=== PATIENT | male | born 1955 | race Caucasian/White ===

== ENCOUNTER 2018-12-31 15:15 | Emergency (ER) | payer MEDICARE, OTHER ==
[~2018-12-31] VITALS: Ht 180.3 cm; Wt 135.0 kg
--- NOTE | 2018-12-31 15:20 | NUR ---
Dr. Miranda at bedside to evaluate pt.
[2018-12-31 15:51] LABS: BASOPHILS # (AUTO) 0.04 x10^3/uL (0-0.1); BASOPHILS % (AUTO) 1 % (0-1); EOSINOPHILS # (AUTO) 0.17 x10^3/uL (0-0.4); EOSINOPHILS % (AUTO) 2 % (1-7); LYMPHOCYTES # (AUTO) 2.56 x10^3/uL (1-3.4); LYMPHOCYTES % (AUTO) 29 % (22-44); MD NO; MEAN CORPUSCULAR HEMOGLOBIN 27.4 pg (27.5-34.5); MEAN CORPUSCULAR HGB CONC 31.5 g/dL (33.2-36.2); MEAN CORPUSCULAR VOLUME 87.2 fL (81-97); MONOCYTES # (AUTO) 0.63 x10^3/uL (0.2-0.8); MONOCYTES % (AUTO) 7 % (2-9); NEUTROPHILS % (AUTO) 62 % (42-75); PLATELET COUNT 304 x10^3/uL (130-400); RED BLOOD COUNT 3.17 x10^6/uL (4.38-5.82); RED CELL DISTRIBUTION WIDTH 18.9 % (9.4-14.8)
[2018-12-31 15:57] LABS: ALBUMIN 1.7 g/dL (3.4-5.0); ANION GAP 6 mmol/L (5-15); CALCIUM 7.9 mg/dL (8.5-10.1); CHLORIDE 110 mmol/L (98-107); CREATININE 1.09 mg/dL (0.7-1.3)
--- NOTE | 2018-12-31 16:29 | NUR ---
Pt ostomy bag removed and Dr. Miranda at bedside to evaluate the stoma more closely. New bag placed.
--- NOTE | 2018-12-31 17:24 | NUR ---
[facility] TO TRANSPORT PT BACK TO [facility] ~1800, PER CELESTINA (DISPATCH), PCS FAXED.
--- NOTE | 2018-12-31 18:01 | NUR ---
Telephone report called to RNJulee, at [facility]. [facility] to transport back to [facility].
[2018-12-31 18:28] VITALS: BP 104/67
== END 2018-12-31 18:30 | disposition home or self-care (01) ==
LOC: ED 18:04
DX: T85.9XXA Unspecified complication of internal prosthetic device, implant and graft, initial encounter (principal); Y83.8 Other surgical procedures as the cause of abnormal reaction of the patient, or of later complication, without mention of misadventure at the time of the procedure; Y92.89 Other specified places as the place of occurrence of the external cause
CPT/HCPCS: 36415; 80048; 82040; 85025; 99283

== ENCOUNTER → 2019-01-06 | Outpatient (CLI) | payer MEDICARE | END | disposition home or self-care (01) | LOC: RAD 13:22 | PROVIDERS: ATTEND Internal Medicine Geriatric Medicine | DX: Z45.2 Encounter for adjustment and management of vascular access device (principal); A41.9 Sepsis, unspecified organism | CPT/HCPCS: 36573; C1751 ==

== ENCOUNTER 2021-01-20 07:00 | Emergency (ER) | payer MEDICARE, MEDICAID ==
[~2021-01-20] VITALS: Ht 180.3 cm; Wt 150.0 kg
[2021-01-20 07:09] VITALS: BP 141/58
[2021-01-20] MEDS ORDERED: INSU100V13 SQ-INSULIN (08:27)
[2021-01-20] MEDS ORDERED: CHOL10003 PO (08:31)
[2021-01-20] MEDS ORDERED: FURO-92 PO (08:31)
[2021-01-20] MEDS ORDERED: GABA600T7 PO (08:31)
[2021-01-20] MEDS ORDERED: HYDR-2214 PO (08:31)
[2021-01-20] MEDS ORDERED: FAMO-79 PO (08:31)
[2021-01-20] MEDS ORDERED: OXYB15TA18 PO (08:31)
[2021-01-20] MEDS ORDERED: SEVE800T7 PO (08:31)
[2021-01-20] MEDS ORDERED: FERR325T18 PO (08:31)
== END 2021-01-20 07:42 | disposition other institution (70) ==
LOC: ED 07:36
DX: Z53.21 Procedure and treatment not carried out due to patient leaving prior to being seen by health care provider (principal)

== ENCOUNTER 2021-01-20 07:22 | Observation (INO) | payer MEDICARE, MEDICAID ==
[~2021-01-20] VITALS: Ht 180.3 cm; Wt 154.2 kg
[~2021-01-20 07:22] MED LIST: BUPIVACAINE/PF 0.5% ONE; EPINEPHRINE 1 MG/ML, 1ML ONE; HEPARIN 1,000 UNITS/ML, 10ML ONE; PAPAVERINE 30 MG/ML, 2ML ONE; PROTAMINE SULFATE 10 MG/ML, 25ML ONE; THROMBIN 20,000 UNIT VIAL TP ONE
[2021-01-20] MEDS ORDERED: SODIUM CHLORIDE 0.9% 1,000 ML IV SCH (08:00)
[2021-01-20] MEDS ORDERED: CHLORHEXIDINE 15 ML UDC PO ONE (08:00)
[2021-01-20] MEDS ORDERED: PLEASE ENTER HEIGHT AND WEIGHT MC SCH (08:00)
[2021-01-20] MEDS ORDERED: INSU100V13 SQ-INSULIN (08:27)
[2021-01-20] MEDS ORDERED: FERR325T18 PO (08:31)
[2021-01-20] MEDS ORDERED: SEVE800T7 PO (08:31)
[2021-01-20] MEDS ORDERED: FURO-92 PO (08:31)
[2021-01-20] MEDS ORDERED: GABA600T7 PO (08:31)
[2021-01-20] MEDS ORDERED: CHOL10003 PO (08:31)
[2021-01-20] MEDS ORDERED: OXYB15TA18 PO (08:31)
[2021-01-20] MEDS ORDERED: FAMO-79 PO (08:31)
[2021-01-20] MEDS ORDERED: HYDR-2214 PO (08:31)
[2021-01-20 08:37] VITALS: BP 117/71
[2021-01-20 08:38] LABS: BASOPHILS % (AUTO) 1 % (0-1); EOSINOPHILS % (AUTO) 7 % (1-7); LYMPHOCYTES % (AUTO) 38 % (22-44); MEAN CORPUSCULAR HEMOGLOBIN 28.5 pg (27.5-34.5); MEAN CORPUSCULAR HGB CONC 31.7 g/dL (33.2-36.2); MEAN PLATELET VOLUME 7.4 fL (7.4-10.4); MONOCYTES % (AUTO) 9 % (2-9); NEUTROPHILS % (AUTO) 45 % (42-75); PLATELET COUNT 227 x10^3/uL (130-400); RED BLOOD COUNT 3.46 x10^6/uL (4.38-5.82); RED CELL DISTRIBUTION WIDTH 15.9 % (9.4-14.8)
[2021-01-20 08:39] LABS: MD NO
[2021-01-20 08:48] LABS: ALANINE AMINOTRANSFERASE 9 U/L (12-78); ALBUMIN 2.9 g/dL (3.4-5.0); ANION GAP 8 mmol/L (5-15); CALCIUM 8.7 mg/dL (8.5-10.1); CHLORIDE 102 mmol/L (98-107)
[2021-01-20 08:50] LABS: ALKALINE PHOSPHATASE 77 U/L (45-117); BILIRUBIN,TOTAL 0.2 mg/dL (0.2-1.0); TOTAL PROTEIN 8.3 g/dL (6.4-8.2)
[2021-01-20] MEDS ORDERED: CHLORHEXIDINE 15 ML UDC ONE (08:51)
[2021-01-20] MEDS ORDERED: MIDAZOLAM 1 MG/ML, 2ML ONE ×2 (09:18→11:56)
[2021-01-20] MEDS ORDERED: FENTANYL PF 100 MCG/2ML ONE ×2 (09:18→11:56)
[2021-01-20] MEDS ORDERED: HEPARIN 1,000 UNITS/ML, 10ML IV ONE ×2 (09:57→10:15)
[2021-01-20] MEDS ORDERED: BUPIVACAINE/PF-EPI 0.5% 1:200K INFIL ONE (09:57)
[2021-01-20] MEDS ORDERED: CEFAZOLIN 1,000 MG ONE ×2 (10:53→11:56)
[2021-01-20] MEDS ORDERED: PHENYLEPHRINE 10 MG/ML ONE (10:53)
[2021-01-20] MEDS ORDERED: ROCURONIUM 10MG/ML,5ML ONE (10:53)
[2021-01-20] MEDS ORDERED: ONDANSETRON 2MG/ML, 2ML ONE ×2 (10:53→11:56)
[2021-01-20] MEDS ORDERED: NEOSTIGMINE 1 MG/ML, 10ML ONE (11:00)
[2021-01-20] MEDS ORDERED: GLYCOPYRROLATE 0.2MG/1ML, 5ML ONE (11:00)
[2021-01-20] MEDS ORDERED: PROPOFOL 10 MG/ML, 20ML ONE (11:56)
[2021-01-20] MEDS ORDERED: FENTANYL PF 100 MCG/2ML IV PRN (12:00)
[2021-01-20] MEDS ORDERED: ONDANSETRON 2MG/ML, 2ML IVPush PRN (12:00)
[2021-01-20] MEDS ORDERED: LABETALOL 5MG/ML, 20ML IV PRN (12:00)
[2021-01-20] MEDS ORDERED: PROMETHAZINE 25 MG/ML, 1ML IVPush PRN (12:00)
[2021-01-20] MEDS ORDERED: PROMETHAZINE 25 MG SUPP PR PRN (12:00)
[2021-01-20] MEDS ORDERED: OXYcodone 5 MG/5 ML ORAL.SOL UDC PO PRN (12:00)
[2021-01-20] MEDS ORDERED: ACETAMINOPHEN 325 MG TABLET PO PRN (12:00)
[2021-01-20] MEDS ORDERED: HYDROcodone/APAP 5/325 TABLET PO PRN (12:00)
[2021-01-20] MEDS ORDERED: HYDROmorphone 1 MG/ML, 1ML INJ IVPush PRN (12:00)
[2021-01-20] MEDS ORDERED: hydrALAzine 20 MG/ML, 1ML IV PRN (12:00)
[2021-01-20] MEDS ORDERED: METHOCARBAMOL 1,000 MG in DEXTROSE 5% 100 ML IV PRN (12:00)
== END 2021-01-20 14:53 ==
LOC: OUT 07:22 → ORIP 11:48 → UNDOADMOB 14:57 → ORIP 14:57
PROVIDERS: ADMIT Surgery; ATTEND Surgery
DX: I12.0 Hypertensive chronic kidney disease with stage 5 chronic kidney disease or end stage renal disease (principal); E11.22 Type 2 diabetes mellitus with diabetic chronic kidney disease; N18.6 End stage renal disease; Z20.822 Contact with and (suspected) exposure to COVID-19; E11.42 Type 2 diabetes mellitus with diabetic polyneuropathy; M54.9 Dorsalgia, unspecified; E66.01 Morbid (severe) obesity due to excess calories; Z99.2 Dependence on renal dialysis; Z79.4 Long term (current) use of insulin; Z79.899 Other long term (current) drug therapy; Z99.3 Dependence on wheelchair; Z93.3 Colostomy status
CPT/HCPCS: 36415; 36558; 36589; 36821; 71045; 77001; 80053; 85025; 85730; 87635; 93005; C1751; G0378; J0171; J0690; J1644; J2250; J2370; J2405; J2704; J2710; J3010; J7030; S0020; J2720; J2440

== ENCOUNTER 2021-03-02 10:13 | Emergency (ER) | payer MEDICARE, MEDICAID ==
[~2021-03-02] VITALS: Ht 180.3 cm; Wt 145.0 kg
[~2021-03-02 10:13] MED LIST changes: -BUPIVACAINE/PF 0.5% ONE; +CHOL10003 PO; -EPINEPHRINE 1 MG/ML, 1ML ONE; +FAMO-79 PO; +FERR325T18 PO; +FURO-92 PO; +GABA600T7 PO; -HEPARIN 1,000 UNITS/ML, 10ML ONE; +HYDR-2214 PO; +INSU100V13 SQ-INSULIN; +OXYB15TA18 PO; -PAPAVERINE 30 MG/ML, 2ML ONE; -PROTAMINE SULFATE 10 MG/ML, 25ML ONE; +SEVE800T7 PO; -THROMBIN 20,000 UNIT VIAL TP ONE
[2021-03-02 10:48] LABS: BASOPHILS % (AUTO) 1 % (0-1); EOSINOPHILS % (AUTO) 3 % (1-7); LYMPHOCYTES % (AUTO) 26 % (22-44); MEAN CORPUSCULAR HEMOGLOBIN 29.8 pg (27.5-34.5); MEAN CORPUSCULAR HGB CONC 32.2 g/dL (33.2-36.2); MEAN PLATELET VOLUME 7.8 fL (7.4-10.4); MONOCYTES % (AUTO) 7 % (2-9); NEUTROPHILS % (AUTO) 64 % (42-75); PLATELET COUNT 155 x10^3/uL (130-400); RED BLOOD COUNT 4.29 x10^6/uL (4.38-5.82); RED CELL DISTRIBUTION WIDTH 18.1 % (9.4-14.8)
[2021-03-02 10:59] LABS: ALBUMIN 3.5 g/dL (3.4-5.0); ANION GAP 9 mmol/L (5-15); CALCIUM 9.2 mg/dL (8.5-10.1); CHLORIDE 104 mmol/L (98-107); CREATININE 2.73 mg/dL (0.7-1.3)
--- NOTE | 2021-03-02 13:20 | NUR ---
BEDSIDE REPORT FROM GLORIA RADFORD FOR TRANSFER OF PATIENT CARE. PROVIDED WARMER TO PATIENT, NADN, CONNECTED TO MONITOR, VSS, CALL LIGHT WITHIN REACH.
--- NOTE | 2021-03-02 14:59 | NUR ---
PATIENT RESTING IN [facility], CONNECTED TO MONITOR, VSS, SIDE RAILS UP X2, CALL LIGHT WITHIN REACH. WAITING FOR IR.
--- NOTE | 2021-03-02 15:07 | NUR ---
PATIENT TO IR.
[2021-03-02] MEDS ORDERED: LIDOCAINE 1%, 10ML ONE (15:21)
[2021-03-02] MEDS ORDERED: MIDAZOLAM 1 MG/ML, 5ML ONE ×2 (15:24)
[2021-03-02] MEDS ORDERED: FENTANYL PF 100 MCG/2ML ONE (15:24)
[2021-03-02] MEDS ORDERED: FLUMAZENIL 0.1 MG/1 ML, 5ML ONE (15:24)
[2021-03-02] MEDS ORDERED: NALOXONE 1 MG/ML, 2ML ONE (15:24)
--- NOTE | 2021-03-02 15:57 | NUR ---
REPORT FROM IR, PATIENT'S PERMACATH CHANGED TO 27 CC, 2 VERSED, 50 FENTANYL, AND 300 mL NS. 22 GAUGE IV STARTED LEFT FA.
--- NOTE | 2021-03-02 16:41 | NUR ---
PATIENT REQUIRES A [facility] TRANSPORT BACK TO [facility].
--- NOTE | 2021-03-02 17:11 | NUR ---
REPORT CALLED TO GLORIA NOGUERA AT [facility] FOR TRANSFER OF PATIENT CARE.
--- NOTE | 2021-03-02 17:56 | NUR ---
PATIENT SITTING IN [place] WATCHING TV, NADN, CONNECTED TO MONITOR, VSS, SIDE RAILS UP X2, CALL LIGHT WITHIN REACH. [facility].
--- NOTE | 2021-03-02 18:54 | NUR ---
REPORT RECEIVED FROM GLORIA RAYMUNDO
--- NOTE | 2021-03-02 19:10 | NUR ---
RESTING ON GURENY, PT WANTING SOMETHING TO EAT, GIVEN SANDWICH AND CHIPS, DENIES NEEDS AT THIS TIME.
--- NOTE | 2021-03-02 19:18 | NUR ---
pt given sandwich and chips. [facility]
--- NOTE | 2021-03-02 20:30 | NUR ---
pt need head of bed adjusted. pt resting on gureny
--- NOTE | 2021-03-02 21:00 | NUR ---
pt need head of bed adjusted. pt resting on gureny
--- NOTE | 2021-03-02 21:58 | NUR ---
pt need head of bed moved. updated pt that [facility] will still be coming tonight
[2021-03-02 22:25] VITALS: BP 122/65
--- NOTE | 2021-03-02 22:35 | NUR ---
PT DISCHARGED WITH [facility]. ALL BELONGINGS SENT WITH PT.
== END 2021-03-02 22:38 | disposition home or self-care (01) ==
LOC: ED 12:53
DX: T82.42XA Displacement of vascular dialysis catheter, initial encounter (principal); I12.0 Hypertensive chronic kidney disease with stage 5 chronic kidney disease or end stage renal disease; N18.6 End stage renal disease; E11.22 Type 2 diabetes mellitus with diabetic chronic kidney disease; Z99.2 Dependence on renal dialysis
CPT/HCPCS: 36415; 36581; 71045; 75984; 80048; 82040; 83735; 84100; 85025; 93005; 99156; 99157; 99285; C1750; C1769; J1642; J2250; J3010; J3490; J2310

== ENCOUNTER 2021-04-10 08:00 | Day surgery (SDC) | payer MEDICARE, MEDICAID ==
[~2021-04-10] VITALS: Ht 180.3 cm; Wt 149.0 kg
[2021-04-10 08:49] VITALS: BP 122/78
[2021-04-10 09:23] LABS: BASOPHILS % (AUTO) 1 % (0-1); EOSINOPHILS % (AUTO) 7 % (1-7); LYMPHOCYTES % (AUTO) 36 % (22-44); MEAN CORPUSCULAR HEMOGLOBIN 29.9 pg (27.5-34.5); MEAN CORPUSCULAR HGB CONC 32.4 g/dL (33.2-36.2); MEAN PLATELET VOLUME 8.5 fL (7.4-10.4); MONOCYTES % (AUTO) 9 % (2-9); NEUTROPHILS % (AUTO) 47 % (42-75); PLATELET COUNT 129 x10^3/uL (130-400); RED BLOOD COUNT 4.38 x10^6/uL (4.38-5.82)
[2021-04-10 09:32] LABS: INTERNATIONAL NORMALIZED RATIO 1.02 (0.93-1.1); PROTHROMBIN TIME 10.9 Seconds (9.6-11.5)
[2021-04-10 09:34] LABS: ALANINE AMINOTRANSFERASE 46 U/L (12-78); ALBUMIN 3.2 g/dL (3.4-5.0); CALCIUM 8.8 mg/dL (8.5-10.1); CREATININE 3.07 mg/dL (0.7-1.3)
[2021-04-10 09:36] LABS: ALKALINE PHOSPHATASE 109 U/L (45-117); BILIRUBIN,TOTAL 0.3 mg/dL (0.2-1.0); TOTAL PROTEIN 7.8 g/dL (6.4-8.2)
[2021-04-10 10:05] LABS: ANION GAP 3 mmol/L (5-15); CHLORIDE 104 mmol/L (98-107)
[2021-04-10] MEDS ORDERED: HEPARIN 1,000 UNITS/ML, 10ML ONE ×2 (10:21→11:02)
[2021-04-10] MEDS ORDERED: NALOXONE 1 MG/ML, 2ML ONE (10:21)
[2021-04-10] MEDS ORDERED: MIDAZOLAM 1 MG/ML, 5ML ONE (10:21)
[2021-04-10] MEDS ORDERED: FENTANYL PF 100 MCG/2ML ONE (10:21)
[2021-04-10] MEDS ORDERED: FLUMAZENIL 0.1 MG/1 ML, 5ML ONE (10:21)
[2021-04-10] MEDS ORDERED: PROTAMINE SULFATE 10 MG/ML, 25ML ONE (10:21)
[2021-04-10] MEDS ORDERED: LIDOCAINE-MPF 2% ,5ML ONE (10:33)
[2021-04-10] MEDS ORDERED: PROTAMINE SULFATE 10 MG/ML, 5ML ONE (11:02)
[2021-04-10] MEDS ORDERED: THROMBIN 20,000 UNIT VIAL TP ONE (11:03)
[2021-04-10] MEDS ORDERED: LIDOCAINE 2%, 20ML ONE (11:09)
== END 2021-04-10 17:10 ==
LOC: OUT 08:00
PROVIDERS: ATTEND Surgery
DX: T82.590A Other mechanical complication of surgically created arteriovenous fistula, initial encounter (principal); E11.42 Type 2 diabetes mellitus with diabetic polyneuropathy; E11.22 Type 2 diabetes mellitus with diabetic chronic kidney disease; N18.6 End stage renal disease; E66.9 Obesity, unspecified; Z68.42 Body mass index [BMI] 45.0-49.9, adult; Z79.4 Long term (current) use of insulin; Z79.899 Other long term (current) drug therapy; Z79.891 Long term (current) use of opiate analgesic; Z93.3 Colostomy status; Z99.2 Dependence on renal dialysis; Z99.3 Dependence on wheelchair; Z98.890 Other specified postprocedural states; Z80.3 Family history of malignant neoplasm of breast; Y84.8 Other medical procedures as the cause of abnormal reaction of the patient, or of later complication, without mention of misadventure at the time of the procedure; Y92.89 Other specified places as the place of occurrence of the external cause
CPT/HCPCS: 36415; 36902; 37607; 80053; 85025; 85610; 99156; 99157; C1725; C1769; C1894; J2250; J3010; J1644; J2720; J2310

== ENCOUNTER 2021-05-17 10:24 | Day surgery (SDC) | payer MEDICARE, MEDICAID ==
[~2021-05-17] VITALS: Ht 177.8 cm; Wt 150.0 kg
[2021-05-17] MEDS ORDERED: FENTANYL PF 100 MCG/2ML ONE (10:44)
[2021-05-17] MEDS ORDERED: PROTAMINE SULFATE 10 MG/ML, 25ML ONE (10:45)
[2021-05-17] MEDS ORDERED: MIDAZOLAM 1 MG/ML, 5ML ONE (10:45)
[2021-05-17] MEDS ORDERED: PAPAVERINE 30 MG/ML, 2ML ONE (10:45)
[2021-05-17] MEDS ORDERED: NALOXONE 1 MG/ML, 2ML ONE (10:45)
[2021-05-17] MEDS ORDERED: HEPARIN 1,000 UNITS/ML, 10ML ONE (10:45)
[2021-05-17] MEDS ORDERED: FLUMAZENIL 0.1 MG/1 ML, 5ML ONE (10:45)
[2021-05-17 10:56] VITALS: BP 111/69
[2021-05-17 10:59] LABS: ALANINE AMINOTRANSFERASE 17 U/L (12-78); ALBUMIN 2.9 g/dL (3.4-5.0); ANION GAP 5 mmol/L (5-15); CALCIUM 8.8 mg/dL (8.5-10.1); CHLORIDE 104 mmol/L (98-107); CREATININE 2.74 mg/dL (0.7-1.3)
[2021-05-17] MEDS ORDERED: SODIUM CHLORIDE 0.9% 1,000 ML IV SCH (11:00)
[2021-05-17 11:01] LABS: ALKALINE PHOSPHATASE 103 U/L (45-117); BILIRUBIN,TOTAL 0.4 mg/dL (0.2-1.0); TOTAL PROTEIN 7.8 g/dL (6.4-8.2)
[2021-05-17] MEDS ORDERED: LIDOCAINE 1%, 10ML ONE (11:02)
[2021-05-17 11:03] LABS: BASOPHILS % (AUTO) 1 % (0-1); EOSINOPHILS % (AUTO) 5 % (1-7); LYMPHOCYTES % (AUTO) 29 % (22-44); MEAN CORPUSCULAR HEMOGLOBIN 30.4 pg (27.5-34.5); MEAN CORPUSCULAR HGB CONC 32.8 g/dL (33.2-36.2); MEAN PLATELET VOLUME 8.6 fL (7.4-10.4); MONOCYTES % (AUTO) 6 % (2-9); NEUTROPHILS % (AUTO) 60 % (42-75); PLATELET COUNT 130 x10^3/uL (130-400); RED BLOOD COUNT 4.48 x10^6/uL (4.38-5.82); RED CELL DISTRIBUTION WIDTH 15.8 % (9.4-14.8)
[2021-05-17 11:07] LABS: INTERNATIONAL NORMALIZED RATIO 1.04 (0.93-1.1); PROTHROMBIN TIME 11.1 Seconds (9.6-11.5)
[2021-05-17] MEDS ORDERED: VISIPAQUE 270 MG/ML, 50ML BOTTLE ONE (13:29)
== END 2021-05-17 15:15 | disposition home or self-care (01) ==
LOC: OUT 10:24
PROVIDERS: ATTEND Surgery
DX: T82.590A Other mechanical complication of surgically created arteriovenous fistula, initial encounter (principal); E11.42 Type 2 diabetes mellitus with diabetic polyneuropathy; E11.22 Type 2 diabetes mellitus with diabetic chronic kidney disease; N18.6 End stage renal disease; E66.01 Morbid (severe) obesity due to excess calories; Z68.42 Body mass index [BMI] 45.0-49.9, adult; Z79.01 Long term (current) use of anticoagulants; Z79.4 Long term (current) use of insulin; Z79.891 Long term (current) use of opiate analgesic; Z79.899 Other long term (current) drug therapy; Z93.3 Colostomy status; Z99.3 Dependence on wheelchair; Z80.3 Family history of malignant neoplasm of breast; Y83.8 Other surgical procedures as the cause of abnormal reaction of the patient, or of later complication, without mention of misadventure at the time of the procedure
CPT/HCPCS: 36902; 80053; 82962; 85025; 85610; 85730; C1725; C1751; C1769; C1894; J2250; J3010; J7030; Q9966; J1644; J2720; J2310; J2440

== ENCOUNTER 2021-06-14 05:07 | Day surgery (SDC) | payer MEDICARE, MEDICAID ==
[~2021-06-14] VITALS: Ht 180.3 cm; Wt 154.0 kg
[2021-06-14] MEDS ORDERED: ACET-1600 PO (06:11)
[2021-06-14] MEDS ORDERED: APIX2.5T PO (06:15)
[2021-06-14] MEDS ORDERED: FLUD0.1T PO (06:15)
[2021-06-14] MEDS ORDERED: PREG50CA PO (06:25)
[2021-06-14] MEDS ORDERED: INSU100I68 SQ (06:25)
[2021-06-14] MEDS ORDERED: FLORINEF PO (06:25)
[2021-06-14] MEDS ORDERED: TRIAMCINOLONE CREAM TP (06:25)
[2021-06-14] MEDS ORDERED: SULF1TAB24 PO (06:25)
[2021-06-14] MEDS ORDERED: LOPE2CAP PO (06:25)
[2021-06-14] MEDS ORDERED: NITR100C56 PO (06:25)
[2021-06-14 06:26] VITALS: BP 105/66
[2021-06-14] MEDS ORDERED: SODIUM CHLORIDE 0.9% 1,000 ML IV SCH (06:30)
[2021-06-14] MEDS ORDERED: CHLORHEXIDINE 15 ML UDC PO ONE (06:30)
[2021-06-14] MEDS ORDERED: FENTANYL PF 250 MCG/5ML ONE (06:44)
[2021-06-14] MEDS ORDERED: BUPIVACAINE/PF 0.5% ONE (07:06)
[2021-06-14] MEDS ORDERED: PROTAMINE SULFATE 10 MG/ML, 25ML ONE (07:06)
[2021-06-14] MEDS ORDERED: THROMBIN 20,000 UNIT VIAL TP ONE (07:06)
[2021-06-14] MEDS ORDERED: HEPARIN 1,000 UNITS/ML, 10ML ONE (07:06)
[2021-06-14] MEDS ORDERED: EPINEPHRINE 1 MG/ML, 1ML ONE (07:06)
[2021-06-14] MEDS ORDERED: PROPOFOL 10 MG/ML, 20ML ONE (07:20)
[2021-06-14] MEDS ORDERED: NEOSTIGMINE 1 MG/ML, 10ML ONE (07:20)
[2021-06-14] MEDS ORDERED: GLYCOPYRROLATE 0.2MG/1ML, 5ML ONE (07:20)
[2021-06-14] MEDS ORDERED: ROCURONIUM 10MG/ML,5ML ONE (07:20)
[2021-06-14] MEDS ORDERED: CEFAZOLIN 1,000 MG ONE (07:20)
[2021-06-14 07:29] LABS: PROTHROMBIN TIME 10.7 Seconds (9.6-11.5)
[2021-06-14] MEDS ORDERED: OXYcodone 5 MG/5 ML ORAL.SOL UDC PO PRN (07:30)
[2021-06-14] MEDS ORDERED: ACETAMINOPHEN 325 MG TABLET PO PRN (07:30)
[2021-06-14] MEDS ORDERED: hydrALAzine 20 MG/ML, 1ML IV PRN (07:30)
[2021-06-14] MEDS ORDERED: HYDROmorphone 1 MG/ML, 1ML INJ IVPush PRN (07:30)
[2021-06-14] MEDS ORDERED: ONDANSETRON 2MG/ML, 2ML IVPush PRN (07:30)
[2021-06-14] MEDS ORDERED: LABETALOL 5MG/ML, 20ML IV PRN (07:30)
[2021-06-14] MEDS ORDERED: FENTANYL PF 100 MCG/2ML ONE (10:30)
[2021-06-14] MEDS: FENTANYL PF 100 MCG/2ML IV PRN ×2 (10:35→10:56)
[2021-06-14] MEDS ORDERED: HYDROcodone/APAP 7.5-325MG/15ML UDC ONE (11:00)
[2021-06-14] MEDS ORDERED: HYDROcodone/APAP 7.5-325MG/15ML UDC PO PRN (11:00)
== END 2021-06-14 13:05 | disposition home or self-care (01) ==
LOC: OUT 05:07
PROVIDERS: ATTEND Surgery
DX: T82.7XXA Infection and inflammatory reaction due to other cardiac and vascular devices, implants and grafts, initial encounter (principal); E11.22 Type 2 diabetes mellitus with diabetic chronic kidney disease; I12.0 Hypertensive chronic kidney disease with stage 5 chronic kidney disease or end stage renal disease; N18.6 End stage renal disease; E11.40 Type 2 diabetes mellitus with diabetic neuropathy, unspecified; K21.9 Gastro-esophageal reflux disease without esophagitis; G82.20 Paraplegia, unspecified; E66.9 Obesity, unspecified; Z68.42 Body mass index [BMI] 45.0-49.9, adult; Z79.01 Long term (current) use of anticoagulants; Z79.4 Long term (current) use of insulin; Z79.891 Long term (current) use of opiate analgesic; Z79.899 Other long term (current) drug therapy; Z93.3 Colostomy status; Z99.2 Dependence on renal dialysis; Z98.890 Other specified postprocedural states; Z99.3 Dependence on wheelchair; Y83.8 Other surgical procedures as the cause of abnormal reaction of the patient, or of later complication, without mention of misadventure at the time of the procedure
CPT/HCPCS: 77001; 82962; 85610; 85730; 87070; 87075; 87077; 87186; 87205; 93005; J0171; J0690; J1644; J2704; J2710; J2720; J3010; C1751; J7030